=== PATIENT | male | born 1990 | race Two or more races ===

== ENCOUNTER 2019-04-27 08:17 | Emergency (ER) | payer MEDICAID, OTHER ==
[~2019-04-27] VITALS: Ht 177.8 cm; Wt 99.8 kg
[2019-04-27 08:42] VITALS: BP 116/74
--- NOTE | 2019-04-27 08:50 | NUR ---
ED Nurse Note: Patient walked into ED from home c/o flu-like symptoms for 2 days. patient also reports body aches for 2 days. patient also requests medication for ETOH withdrawl, patient reports his last drink was almost 1 week and a half ago. patient is alert awake x4 ambulatory steady gait, breathing unlabored and even, speaking in full sentences.
[2019-04-27] MEDS ORDERED: FAMOTIDINE20 MG ORAL (09:08)
[2019-04-27] MEDS ORDERED: TESSALON PERLE100 MG ORAL (09:08)
--- NOTE | 2019-04-27 09:11 | Emergency Room Report ---
History of Present Illness General Chief Complaint: Flu Like Symptoms Source: Patient Present Illness HPI Disclaimer: Please note that this report is being documented using DRAGON technology. This can lead to erroneous entry secondary to incorrect interpretation by the dictating instrument. HPI: 28-year-old male with history of anxiety, bipolar depression, alcohol abuse presents for evaluation of cough and myalgias. Symptoms have been present approximately 5 days. The patient recently completed detox program 2 weeks ago and has been sober for 2 weeks. He noted nasal congestion, sore throat, productive cough, denied fevers, reported diffuse myalgias and arthralgias and had developed nonbloody diarrhea for the past few days. Denies any vomiting or abdominal pain. Was concerned that the diarrhea may be a symptom of alcohol withdrawal. He denies any withdrawal seizures, tremors, changes in mental status, head injuries or other changes in his health. He is requesting a refill of his Pepcid which was not given to him at his outpatient facility. No other symptoms reported at this time. Otherwise in his usual state of health. Did not receive a flu shot this year PMH: Bipolar disorder, anxiety, alcohol abuse PSH: None Allergies: Penicillin Social Hx: Occasional marijuana use, regular tobacco use, alcohol abuse, denies IV drug use Allergies: Coded Allergies: PENICILLINS (Verified Allergy, Unknown, 04/27/19) Nursing Documentation-PMH Past Medical History: No History, Except For Hx Gastrointestinal Problems: Yes History Of Psychiatric Problem: Yes - Depression bi-polar anxiety Review of Systems All Other Systems: negative except mentioned in HPI Physical Exam Vital Signs Date Time Temp Pulse Resp B/P (MAP) Pulse Ox O2 Delivery O2 Flow Rate FiO2 04/27/19 08:42 98.1 95 18 116/74 97 Room Air General: Awake and alert, no acute distress HEENT: NC/AT. EOMI. Cardiovascular: RRR. S1 and S2 normal. No murmur appreciated Resp: Normal work of breathing. No cough, no wheezing. Few crackles at the bases bilaterally. Abdomen: Abdomen is soft, nondistended. Nontender Skin: Intact. No abrasions, laceration or rash over the exposed skin MSK: Normal tone and bulk. Moving all extremities. No obvious deformity. Neuro: Awake and alert. Mentating appropriately. Medical Decision Making Diagnostic Impression: Primary Impression: Cough Additional Impressions: Diarrhea Viral syndrome ER Course This 28-year-old male presenting for evaluation of 1 week upper respiratory symptoms with recent development of myalgias, arthralgias and diarrhea. He overall is well-appearing with stable vital signs and this is likely a viral syndrome. His last drink of alcohol was 2 weeks ago and is unlikely that any of the symptoms would be alcohol withdrawal in nature. Will obtain a two-view chest x-ray to rule out pneumonia as there are findings of trace crackles at the bases bilaterally overall though he is well-appearing. Presuming a negative chest x-ray the patient may be discharged to follow-up as outpatient. Will provide antitussives and refill his Pepcid prescription. Discussed getting a flu shot once his symptoms are resolved. Chest X-Ray Diagnostic Results Chest X-Ray Diagnostic Results : Chest X-Ray Ordered: Yes # of Views/Limited/Complete: 2 View Indication: Other - cough Interpretation: no consolidation, no effusion, no pneumothorax, no acute cardiopulmonary disease Impression: No acute disease Electronically Signed by: Electronically signed by Dr. Cirilo Strong Reevaluation Time: 09:41 Last Vital Signs Date Time Temp Pulse Resp B/P (MAP) Pulse Ox O2 Delivery O2 Flow Rate FiO2 04/27/19 08:57 95 18 Room Air 04/27/19 08:42 98.1 116/74 (88) 97 Reevaluation Impression No obvious infiltrate, effusions, pneumothorax or other pathology noted on chest x-ray. There is mild congestion in the bases which may represent a viral syndrome. He is stable and appropriate for outpatient follow up. Will treat symptomatically with supportive care. Discussed reasons to return to the ED. He understands and agrees with treatment plan. Disposition: HOME, SELF-CARE Condition: Stable Scripts Benzonatate* (TESSALON PERLE*) 100 Mg Capsule 100 MG ORAL THREE TIMES A DAY for 5 Days, #20 PERLE Prov: Cirilo Strong MD 04/27/19 Famotidine (FAMOTIDINE) 20 Mg Tablet 20 MG ORAL DAILY for 30 Days, #30 TAB 0 Refills Prov: Ciirlo Strong MD 04/27/19 Patient Instructions: Viral Respiratory Infection Additional Instructions: Your evaluated in the emergency department for cough and diarrhea. Likely, this is a viral syndrome which should resolve in the next 5 days. Make sure to drink plenty of fluids to replace losses from diarrhea. I have refilled your Pepcid and prescribed Tessalon Perles for cough. Please follow-up with your primary care doctor 1 of the doctors listed in your discharge paperwork for reevaluation within the next week. After your symptoms are resolved get a flu shot to prevent influenza this season. This can be arranged at most pharmacies and by your primary doctor. Return to the emergency department any new or worsening symptoms. Cirilo Strong MD Apr 27, 2019 09:11
--- NOTE | 2019-04-27 09:33 | NUR ---
ED Nurse Note: patient taken to xray.
--- NOTE | 2019-04-27 09:38 | NUR ---
ED Nurse Note: patient came back from xray
[2019-04-27 09:52] VITALS: BP 116/74
--- NOTE | 2019-04-27 09:52 | NUR ---
ER DISCHARGE NOTE: Patient is cleared to be discharged per ERMD DR VALDEZ, pt is aox4, on room air, with stable vital signs. pt was given dc and prescription instructions, pt was able to verbalize understanding, pt id band removed without complications. pt is able to ambulate with steady gait. pt took all belongings.
--- NOTE | 2019-04-27 10:10 | Diagnostic Imaging Report ---
EXAM: XR Chest, 2 Views CLINICAL HISTORY: COUGH TECHNIQUE: Frontal and lateral views of the chest. COMPARISON: No relevant prior studies available. FINDINGS: Lungs: Mild interstitial prominence. No focal infiltrate. Maybe a bronchiolitis or viral pneumonia. Pleural space: Unremarkable. No pneumothorax. Heart: Unremarkable. No cardiomegaly. Mediastinum: Unremarkable. Bones joints: Unremarkable. IMPRESSION: Mild interstitial prominence. No focal infiltrate. Maybe a bronchiolitis or viral pneumonia.
== END 2019-04-27 09:52 | disposition home or self-care (01) ==
LOC: EMR 08:46
DX: B34.9 Viral infection, unspecified (principal); R05 Cough; F31.9 Bipolar disorder, unspecified; F41.9 Anxiety disorder, unspecified; Z88.0 Allergy status to penicillin
CPT/HCPCS: 71046; Z7502; 99283